=== PATIENT | male | born 1970 | race Caucasian/White ===

== ENCOUNTER 2023-02-14 21:56 | Emergency (ER) | payer SELFPAY ==
--- NOTE | 2023-02-14 22:00 | DI.RAD_ITS ---
Exam(s) XR CHEST 2V PA LATERAL EXAM: XR CHEST 2V PA LATERAL CLINICAL HISTORY: Cough and shortness of breath TECHNIQUE: 2D digital imaging was performed of the chest. Two images were obtained. PA and lateral views were obtained. COMPARISON: CR RIGHT RIBS TO INCLUDE CXR from 12/21/2010 FINDINGS: MEDIASTINUM: Normal. HEART: Normal. PULMONARY VASCULATURE: Normal. LUNGS: Clear. PLEURAL SPACE: No pleural effusion or pneumothorax. BONE:Within normal limits for the patient's age. OTHER FINDINGS:Normal. IMPRESSION: No acute pulmonary findings. DATA REPOSITORY: RADIATION DOSE DELIVERED:
--- NOTE | 2023-02-14 22:00 | W.ED.GENAD ---
Discharge Plan Disposition Patient Disposition: Home Discharge Details Clinical Impression: Viral upper respiratory tract infection with cough Primary Care Provider: Soheila,Local ED Provider: Adam Wolf Home Meds and New Rx's Prescriptions: New cetirizine 10 mg tablet 10 mg PO DAILY PRNQty: 7 0RF fluticasone propionate [Flonase Allergy Relief] 50 mcg/actuation spray,suspension 1 spray intranasal DAILY Qty: 16 0RF Rx Instructions: administer into each nostril promethazine-DM 6.25-15 mg/5 mL syrup 5 ml PO Q6H PRNQty: 118 0RF Continued multivitamin 1 EACH capsule 1 ea PO DAILY Discontinued Flovent Diskus 1 EACH blister with device 50 mcg Inhalation BID tramadol 50 MG tablet 50 mg PO Q6H PRN (Reason: Pain) Qty: 7 0RF azithromycin 250 MG tablet 250 mg PO DAILY Qty: 4 0RF Discharge Instructions Instructions: Acute Cough (ED) Additional Instructions: You were seen in the emergency department for your cough and runny nose. Your x-ray showed no sign of a pneumonia. As we discussed, please return to the emergency department if you develop worsening shortness of breath chest pain or if you pass out. Please take the prescriptions that have been sent to the pharmacy for you. For your pain please take medications as follows: 1. Take acetaminophen (Tylenol), 1,000 mg (two 500 mg tabs) every 6 hours 2. Take ibuprofen (Advil), 400 mg every 6 hours. Discharge Data Discharge Date/Time-TO BE ENTERED AT DEPARTURE: 02/14/23 23:19 HPI General Date/Time Provider Initiated Documentation: 02/14/23 21:58. HPI Narrative: MDM This is an overall very well-appearing normothermic and not tachycardic 52-year-old male with history and physical most consistent with viral URI. Patient reports history of pneumonia and based on his age will obtain 2 view chest x-ray to assess for pneumonia though he has not recently had purulent sputum nor any fevers and is not hypoxic so my suspicion for pneumonia is relatively low. No posterior oropharynx erythema to suggest strep pharyngitis. No sore throat to suggest peritonsillar abscess. Good range of motion in neck so I am not concerned for retropharyngeal abscess. No chest pain to suggest PE and patient is neither tachycardic nor hypoxic and as result given his URI symptoms my suspicion is low for PE so I did not obtain a D-dimer. Given URI symptoms of rhinorrhea and cough without chest pain my suspicion is low for ACS so I did not obtain an ECG. No pain out of proportion to suggest necrotizing soft tissue infection. Patient reports indolent onset headache associated with coughing. Given no sudden onset headache my suspicion is exceedingly low for subarachnoid hemorrhage I did not obtain a CT head. Given no fevers I am not concerned for meningitis I do not feel that the patient requires a lumbar puncture. No recent carbon monoxide exposure to suggest CO toxicity. No neck pain to suggest cervical arterial dissection so I did not feel that the patient required a CT angiogram of his neck. Patient is a tobacco user and reports he occasionally uses an inhaler at home when he is in [place]. He has no significant wheezes nor prolonged expiratory phase to suggest acute exacerbation of reactive airway disease however will discharge with inhaler to use as needed. I discussed with patient and his that he should return for fevers worsening shortness of breath chest pain or any difficulty breathing. If his chest x-ray does not reveal pneumonia will discharge with empiric trial of expectant outpatient management. If x-ray reveals a pneumonia we will add antibiotics to plan for discharge. 11:17 PM Preliminary virtual radiology read of chest x-ray reassuring: PROCEDURE INFORMATION: Exam: XR Chest Exam date and time: 02/14/2023 10:34 PM Age: 52 years old Clinical indication: Cough and shortness of breath TECHNIQUE: Imaging protocol: Radiologic exam of the chest. Views: 2 views. COMPARISON: No relevant prior studies available. FINDINGS: Lungs: Unremarkable. No consolidation. Pleural spaces: Unremarkable. No pleural effusion. No pneumothorax. Heart/Mediastinum: Unremarkable. No cardiomegaly. Bones/joints: Unremarkable. IMPRESSION: No acute findings. Dictated and Authenticated by: Edu Keith MD 02/14/2023 11:15 PM Eastern Time ([place] & [place]) Patient discharged per plan above. Chronic conditions affecting the care of the patient: Bilateral carpal tunnel syndrome History obtained from an outside historian: Patient's External record review: No [facility] EMR records Diagnostic interpretations performed by me: Per my independent interpretation chest x-ray shows: Medications: Albuterol, cetirizine, Tessalon Perles, and acetaminophen Social determinants of health affecting disposition: N/A Management discussed with: N/A Treatment/interventions considered: N/A Response to therapies provided: N/A HPI This is a 52-year-old male visiting the area from [place] arrived to the emergency department with his via private vehicle in the setting of cough and runny nose. Patient reports that over the past several days he has had worsening cough with rhinorrhea. He reports that he feels congested. He reports that he has been coughing so much that he gradually developed a headache. He reports that he annually contracts bronchitis around this time a year. He endorses some shortness of breath with tightness in his chest. He is not having any chest pain. He does not have a history of asthma although he is a tobacco user and has received prescriptions in the past for albuterol inhalers. He has not recently been exposed to any generators. He does not have his inhaler locally. He has attempted treatment at home with Mucinex but this has not improved his symptoms. He denies routine ethanol and illicits. Exam General: Well-appearing in no acute distress speaking in complete sentences. Head: Normocephalic, atraumatic. Eye: Extraocular eye movements intact. No conjunctival injection. No scleral icterus. Ear, nose, mouth, throat: Grossly normal inspection. Normal voice, handling secretions normally. No significant posterior oropharynx erythema. Uvula midline. Good range of motion in neck Neck: Trachea midline. Cardiovascular: Well-perfused distal extremities. Regular rate and rhythm. Respiratory: Nonlabored respiration. Speaking in complete 6-7 word sentences. No stridor. No wheezes. No prolonged expiratory phase. Gastrointestinal: Nondistended abdomen. Musculoskeletal: No edema. Moving all 4 extremities spontaneously. Skin: Normal for age and race, grossly normal temperature and turgor. No acute rash. Neurologic: Alert and appropriate, no apparent acute deficits. Psychiatric: Mood and manner are appropriate. Grooming and personal hygiene are appropriate. Related Data Home Medications Medication Instructions Recorded Confirmed multivitamin 1 ea PO DAILY 11/21/12 11/22/16 cetirizine 10 mg tablet 10 mg PO DAILY PRN #7 tabs 02/14/23 fluticasone propionate 50 1 spray intranasal DAILY #16 grams 02/14/23 mcg/actuation nasal spray,suspension (Flonase Allergy Relief) promethazine-DM 6.25 mg-15 mg/5 mL 5 ml PO Q6H PRN #118 mL 02/14/23 oral syrup Previous Rx's Medication Instructions Recorded cetirizine 10 mg tablet 10 mg PO DAILY PRN #7 tabs 02/14/23 fluticasone propionate 50 1 spray intranasal DAILY #16 grams 02/14/23 mcg/actuation nasal spray,suspension (Flonase Allergy Relief) promethazine-DM 6.25 mg-15 mg/5 mL 5 ml PO Q6H PRN #118 mL 02/14/23 oral syrup Allergies Allergy/AdvReac Type Severity Reaction Status Date / Time Penicillins Allergy Severe rash fever Unverified 05/10/17 21:11 mushroom Allergy Unverified 05/10/17 21:11 PFSH All Active Problems (Updated 02/14/23 @ 22:20 by Adam Wolf MD) Viral upper respiratory tract infection with cough (Acute) Social History Smoking/Tobacco Use Status: Current every day Tobacco Type: cigarettes Smoking risk assessment performed?: Yes Alcohol Intake: former Drug use: Never Substance use type: does not use Do you feel safe in your relationship?: Yes
[2023-02-14 22:02] VITALS: BP 128/76; PULSE 66; RESP 20; TEMP 37; O2SAT 97
[2023-02-14] MEDS: Benzonatate 100 MG CAP PO (22:43)
[2023-02-14] MEDS: Albuterol HFA 8 GM 60 PUFF INH IH (22:43)
[2023-02-14] MEDS: Acetaminophen 500 MG TAB 1000 MG PO (22:43)
[2023-02-14] MEDS: Cetirizine 10 MG TAB PO (22:43)
[2023-02-14 22:46] VITALS: BP 128/76; PULSE 66; RESP 20; TEMP 37; O2SAT 97
[2023-02-14] MEDS: Inhaler, Assist Device 1 EACH MC (23:02)
--- NOTE | 2023-02-14 23:15 | DI.VRAD_ITS ---
PROCEDURE INFORMATION: Exam: XR Chest Exam date and time: 02/14/2023 10:34 PM Age: 52 years old Clinical indication: Cough and shortness of breath TECHNIQUE: Imaging protocol: Radiologic exam of the chest. Views: 2 views. COMPARISON: No relevant prior studies available. FINDINGS: Lungs: Unremarkable. No consolidation. Pleural spaces: Unremarkable. No pleural effusion. No pneumothorax. Heart/Mediastinum: Unremarkable. No cardiomegaly. Bones/joints: Unremarkable. IMPRESSION: No acute findings. Dictated and Authenticated by: Edu Keith MD. Ordering:GRACIELA Medina MD
[2023-02-14 23:20] VITALS: BP 124/72; PULSE 68; RESP 18; O2SAT 98
== END 2023-02-14 23:19 | disposition home or self-care (01) ==
PROVIDERS: Emergency Provider Emergency Medicine
DX: R05.9 Cough, unspecified (principal); R51.9 Headache, unspecified; J06.9 Acute upper respiratory infection, unspecified; Z72.0 Tobacco use; G56.03 Carpal tunnel syndrome, bilateral upper limbs
CPT/HCPCS: 94640; 99283; 71046; 99284

== ENCOUNTER 2024-06-29 17:07 | Emergency (ER) | payer SELFPAY ==
[2024-06-29 17:09] VITALS: BP 148/80; PULSE 84; RESP 12; TEMP 36.3; O2SAT 97
--- NOTE | 2024-06-29 17:39 | W.ED.GENAD ---
Discharge Plan Disposition Patient Disposition: Home Condition: Stable Discharge Details Clinical Impression: Dental infection Primary Care Provider: Unknown,Unknown ED Provider: Liane Turner Home Meds and New Rx's Prescriptions: New clindamycin HCl 150 mg capsule 450 mg PO TID 7 Days Qty: 63 0RF Discharge Instructions Instructions: Dental Pain (DC) Additional Instructions: You were seen in the ED today for tooth pain and swelling concerning for a dental infection. In our department, you had a full physical exam and we are starting you on an antibiotic called Clindamycin. Please take all of this medication until it's going, even if you are feeling better. You can prevent GI upset associated with the antibiotics by eating a yogurt containing live active cultures. You can continue to use Tylenol and Ibuprofen for pain, and need to establish with a dentist as soon as possible upon returning to [place]. You can return sooner for reevaluation if you develop a fever that does not improve with medications, inability to move your neck or open your mouth, or any other symptoms that cause you concern. Thank you for allowing us to be part of your care. Discharge Data Discharge Date/Time-TO BE ENTERED AT DEPARTURE: 06/29/24 17:59 HPI General Mode of arrival: ambulatory. Date/Time Provider Initiated Documentation: 06/29/24 17:08. Limitations to Documentation: no limitations. Information obtained by: patient, family and old records reviewed. HPI Narrative: HPI: This is a 53-year-old male patient with without significant past medical history presenting for evaluation of tooth pain and facial swelling. The patient reports that he has a lower second molar on the right side that has given him trouble for about a month, but over the last few days has noted swelling underneath the right sided jaw. He feels like that makes it difficult for him to swallow, but has been able to eat and drink. He has not noted any fevers or chills, voice changes, or difficulty moving his neck or opening his mouth. He has been using Tylenol with good effect on his pain. The patient is visiting family from [place] and is returning home within the week. He does not have an established dentist at home. He has a childhood history of allergy to penicillins. Exam: Gen: Awake and alert, in no apparent distress HEENT: Non-icteric sclera, PERRL, EOMs full and without entrapment. There is no midface swelling, the patient has poor dentition and extensive dental carry disease, no significant swelling or evidence of periapical abscess. The left lower molars are eroded. He has tenderness of the submandibular lymph nodes with mild swelling, no induration of the floor of the mouth, no trismus. Voice is clear, managing secretions Neck: Supple, full range of motion without stiffness Lungs: No apparent respiratory distress, normal respiratory effort. CV: Appears well perfused, strong radial pulses Abdomen: Non-distended MSK: Moves 4 extremities without apparent limitation in ROM Skin: Visualized skin without rashes, cyanosis. Neuro: Normal Gait, no obvious focal deficits or facial asymmetry. Speaks in full, clear sentences. Psych: Appropriate for situation. MDM: This is a 53-year-old male patient presenting for evaluation of dental pain and facial swelling. Differential includes but is not limited to dental infection, dental carry disease, no evidence for apical abscess. The patient has no trismus, systemic illness, or physical exam findings to significantly increase my concern for Jerome angina or deep space abscess. ED Course: I provided the patient with a prescription for clindamycin to be taken given his history of allergy to penicillins. I do not see indication at this time for advanced imaging or laboratory studies. I did recommend to the patient that he contact a dentist in his hometown as soon as possible to schedule a follow-up appointment for definitive management. At this time, the patient has had a full medical evaluation and is safe for discharge to home. They are hemodynamically stable, ambulatory, and tolerating PO. They are understanding of the follow-up plan and return precautions. They left our facility without incident. Liane Turner MD Related Data Home Medications ?Medication ?Instructions ?Recorded ?Confirmed clindamycin HCl 150 mg capsule 450 mg (3 x 150 mg) PO TID 7 days 06/29/24 #63 caps Previous Rx's ?Medication ?Instructions ?Recorded clindamycin HCl 150 mg capsule 450 mg (3 x 150 mg) PO TID 7 days 06/29/24 #63 caps Allergies Allergy/AdvReac Type Severity Reaction Status Date / Time Penicillins Allergy Severe rash fever Unverified 06/29/24 17:12 mushroom Allergy Unknown Unverified 06/29/24 17:12 General Stated Complaint: DentalOral GILBERTO: 4 Course Vital Signs Vital signs: Vital Signs Temperature 36.3 C L 06/29/24 17:09 Pulse 84 06/29/24 17:09 Respiratory Rate 12 06/29/24 17:09 Blood Pressure 148/80 H 06/29/24 17:09 Pulse Oximetry 97 06/29/24 17:09 Temperature 36.3 C L 06/29/24 17:09 Temperature Source Axillary 06/29/24 17:09 Pulse 84 06/29/24 17:09 Respiratory Rate 12 06/29/24 17:09 Blood Pressure 148/80 H 06/29/24 17:09 Blood Pressure Position Sitting 06/29/24 17:09 Pulse Oximetry 97 06/29/24 17:09 Oxygen Delivery Method Room Air 06/29/24 17:09 Oxygen Flow Rate 0 06/29/24 17:09 Pain Level 5 06/29/24 17:33 Medical Decision Making Quality:SDOH Health Related Social Needs: No Data to Display PFSH All Active Problems (Updated 06/29/24 @ 17:39 by Liane Turner MD) Dental infection (Acute) Social History Smoking/Tobacco Use Status: Current every day Tobacco Type: cigarettes Smoking risk assessment performed?: Yes Alcohol Intake: former Drug use: Never Substance use type: does not use Do you feel safe in your relationship?: Yes
[2024-06-29 17:45] VITALS: BP 140/80; PULSE 84; RESP 12; TEMP 36.3; O2SAT 97
[2024-06-29] MEDS: Clindamycin 150 MG CAP, 12 CAPS/BTL 450 MG PO (17:53)
[2024-06-29 17:59] VITALS: BP 148/80; PULSE 84; RESP 12; TEMP 36.3; O2SAT 97
== END 2024-06-29 17:59 | disposition home or self-care (01) ==
LOC: ER 17:59
PROVIDERS: Emergency Provider Emergency Medicine
DX: K08.89 Other specified disorders of teeth and supporting structures (principal); K04.7 Periapical abscess without sinus; F17.210 Nicotine dependence, cigarettes, uncomplicated
CPT/HCPCS: 99283